=== PATIENT | male | born 1960 | race Caucasian/White ===

== ENCOUNTER → 2016-10-17 | Outpatient (CLI) | payer OTHER ==
--- NOTE | 2016-10-17 15:05 | PCVCIMAG ---
APPROVED REPORT Study performed: 10/17/2016 09:24:00 EXAM: Comprehensive 2D, Doppler, and color-flow Echocardiogram Patient Location: Echo lab Status: routine BSA: 2.06 HR: 51 bpmBP: 110/80 mmHg Rhythm: Bradycardia Other Information Study Quality: Adequate Risk Factors: Cardiac Risk Factors: HTN Indications Bradycardia #29 Mechanical aortic valve replacement, aortic root repair 2D Dimensions LVEF(%): 54.42 (>50%) IVSd: 13.54 (7-11mm)LVOT Diam: 28.90 (18-24mm) LVDd: 48.92 mm PWd: 13.16 (7-11mm)Ascending Ao: 30.52 (22-36mm) LVDs: 35.10 (25-40mm) Left Atrium: 43.62 (27-40mm) Aortic Root: 33.96 mm LV Single Plane 4CH: 47.28 % LV Single Plane 2CH: 52.82 %Cortez's LVEF: 50.05 % Biplane EF: 49.0 % Volumes Left Atrial Volume (Systole) Single Plane 4CH: 57.45 mLSingle Plane 2CH: 53.49 mL LA ESV Index: 28.00 mL/m2 Aortic Valve AoV Peak Bernard.: 1.55 m/s AO Peak Gr.: 9.63 mmHgLVOT Max P.32 mmHg AO Mean Gr.: 4.99 mmHgLVOT Mean P.10 mmHg AO V2 Mean: 1.04 m/sLVOT Max V: 0.76 m/s AO V2 VTI: 32.52 cmLVOT Mean V: 0.49 m/s MAG (VTI): 3.48 [id number] V1 VTI: 17.27 cm MAG Vmax: 3.22 cm2 SV (LVOT): 113.24 mL Mitral Valve E/A Ratio: 2.4 MV Decel. Time: 270.20 ms MV E Max Bernard.: 0.64 m/s MV A Bernard.: 0.27 m/s IVRT: 134.95 ms TDI E/Lateral E': 7.00E/Medial E': 11.00 Pulmonary Valve PV Peak Bernard.: 1.00 m/sPV Peak Gr.: 4.03 mmHg Pulmonary Vein P Vein S: 0.27 m/sP Vein A: 0.22 m/s P Vein D: 0.82 m/sP Vein A Dur.: 134.9 msec P Vein S/D Ratio: 0.33 Tricuspid Valve TR Peak Bernard.: 2.34 m/s TR Peak Gr.: 21.90 mmHg Left Ventricle The left ventricle is normal size. There is normal LV segmental wall motion. Mild concentric left ventricular hypertrophy. Left ventricular systolic function is within lower limits of normal. LVEF is 50%. Grade II - pseudonormal filling dynamics. Right Ventricle The right ventricle is normal size. The right ventricular systolic function is normal. Atria The left atrium size is normal. Right atrium is mildly dilated. Aortic Valve Normally functioning #29 mechanical aortic valve. Trace aortic regurgitation. There is no aortic valvular stenosis. Mitral Valve The mitral valve is normal in structure. There is no mitral valve regurgitation noted. No evidence of mitral valve stenosis. Tricuspid Valve The tricuspid valve is normal in structure. Trace tricuspid regurgitation with PAP of 29 mmHg. Pulmonic Valve The pulmonary valve is normal in structure. There is no pulmonic valvular regurgitation. Great Vessels The aortic root is normal in size. IVC is normal in size and collapses with >50% inspiration Pericardium There is no pericardial effusion. <Conclusion> Left ventricular systolic function is within lower limits of normal. Mild concentric left ventricular hypertrophy. LVEF is 50%. Grade II - pseudonormal filling dynamics. The left atrium size is normal. Normally functioning #29 mechanical aortic valve. Right atrium is mildly dilated. There is no mitral valve regurgitation noted. Trace tricuspid regurgitation with PAP of 29 mmHg. There is no pericardial effusion.
== END | disposition home or self-care (01) ==
LOC: PCVCIMAG 09:21
PROVIDERS: ATTEND Internal Medicine Cardiovascular Disease
DX: I08.2 Rheumatic disorders of both aortic and tricuspid valves (principal); I10 Essential (primary) hypertension; E78.5 Hyperlipidemia, unspecified; J45.909 Unspecified asthma, uncomplicated; Z95.2 Presence of prosthetic heart valve; Z82.49 Family history of ischemic heart disease and other diseases of the circulatory system
CPT/HCPCS: 85610; 93306